=== PATIENT | female | born 1930 | race Caucasian/White ===

== ENCOUNTER 2017-04-29 11:29 | Day surgery (SDC) | payer MEDICARE, OTHER ==
[~2017-04-29] VITALS: Ht 167.6 cm; Wt 53.2 kg
[2017-04-29] MEDS ORDERED: SODIUM CHLORIDE 0.9% 1,000 ML IV SCH (11:55)
[2017-04-29 12:05] VITALS: BP 148/86
[2017-04-29] MEDS ORDERED: DIGO125T10 PO (12:23)
[2017-04-29] MEDS ORDERED: APIX5TAB PO (12:24)
[2017-04-29] MEDS ORDERED: FLUO10CA13 PO (12:24)
[2017-04-29] MEDS ORDERED: VANCOMYCIN PMX 1GM/200ML 200 ML ONE (13:02)
[2017-04-29] MEDS ORDERED: FENTANYL PF 100 MCG/2ML ONE (13:02)
[2017-04-29] MEDS ORDERED: LIDOCAINE 2%, 20ML ONE (13:02)
[2017-04-29] MEDS ORDERED: MIDAZOLAM 1 MG/ML, 5ML ONE (13:02)
[2017-04-29] MEDS ORDERED: VANCOMYCIN 500 MG ONE (13:02)
[2017-04-29] MEDS ORDERED: SODIUM CHLORIDE FLUSH 10ML SYR IVF SCH (21:00)
== END 2017-04-29 15:50 ==
LOC: CACL 11:29
PROVIDERS: ATTEND Internal Medicine Cardiovascular Disease
DX: I49.5 Sick sinus syndrome (principal); I48.2 Chronic atrial fibrillation; F41.9 Anxiety disorder, unspecified; K76.0 Fatty (change of) liver, not elsewhere classified; I25.10 Atherosclerotic heart disease of native coronary artery without angina pectoris; Z88.1 Allergy status to other antibiotic agents; Z88.0 Allergy status to penicillin; Z88.8 Allergy status to other drugs, medicaments and biological substances
CPT/HCPCS: 33227; 99156; 99157; C1786; J2250; J3010; J3370; J3490